=== PATIENT | female | born 1980 | race Caucasian/White ===

== ENCOUNTER 2016-09-14 15:29 | Emergency (ER) | payer OTHER ==
[2016-09-14 15:33] VITALS: BMI 23.3
[2016-09-14] MEDS ORDERED: METOCLOPRAMIDE HCL INJECTION 10 MG/2 ML VIAL IVPB ONE (16:16)
[2016-09-14] MEDS ORDERED: ACETAMINOPHEN 325 MG TABLET (FP) PO ONE (16:16)
[2016-09-14] MEDS ORDERED: SODIUM CHLORIDE 1,000 ML IV STA (16:17)
--- NOTE | 2016-09-14 16:23 | PDOC ---
History of Present Illness - General History Source: Patient Exam Limitations: No Limitations - History of Present Illness Initial Comments: 09/14/16 16:37 The patient is a 36 year old female who is currently 7 weeks , A1, with a significant past medical history of fibromyalgia and migraines, who presents to the emergency department with abdominal pain, headache and nosebleed. She states that the abdominal pain ranges from mild to moderate, without radiation or modifying factors. She notes that this pain has persisted for a month but has exacerbated today. She describes her headache as a pressure like sensation and reports that her headache ranges from mild to moderate, without radiation or modifying factors. She states that she has been experiencing the headache for 3 days. She notes that he nosebleed started yesterday and has had a total of 4 nosebleeds since. She denies vaginal bleeding or vaginal discharge. She denies taking any medication for the pain. The patient denies chest pain, shortness of breath, and dizziness. Denies fever , chills, nausea, vomit, diarrhea and constipation. Denies dysuria, frequency, urgency and hematuria. Allergies: None Past surgical history: None reported Social history: No alcohol, tobacco <Tarun Allison - Last Filed: 09/14/16 19:55> - General History Source: Patient Exam Limitations: No Limitations <Walt Gleason - Last Filed: 09/14/16 20:17> - General Chief Complaint: Pain Stated Complaint: 7 WKS , ABD PAIN, NOSE BLEED Time Seen by Provider: 09/14/16 16:09 Past History <Tarun Allison - Last Filed: 09/14/16 19:55> - Past Medical History Other medical history: FIBROMYALGIA - Reproductive History Is Patient Now?: Yes (#): 2 Para: 0 Spontaneous : 1 - Psycho/Social/Smoking Cessation Hx Anxiety: No Suicidal Ideation: No Smoking History: Never smoked Hx Alcohol Use: No Drug/Substance Use Hx: No Substance Use Type: None <Walt Gleason - Last Filed: 09/14/16 20:17> - Past Medical History Allergies/Adverse Reactions: Allergies Allergy/AdvReac Type Severity Reaction Status Date / Time No Known Allergies Allergy Verified 09/14/16 15:33 Home Medications: Ambulatory Orders Acetaminophen [Tylenol] 650 mg PO Q4H PRN #20 tablet 09/14/16 Vit Calc,Iron,Folic [ Vitamins] 1 each PO DAILY #30 tablet 08/30 Review of Systems - Review of Systems Able to Perform ROS?: Yes Comments:: 09/14/16 16:37 GENERAL/CONSTITUTIONAL: No fever or chills. No weakness. HEAD, EYES, EARS, NOSE AND THROAT: +Nosebleed. No change in vision. No ear pain or discharge. No sore throat. CARDIOVASCULAR: No chest pain or shortness of breath RESPIRATORY: No cough, wheezing, or hemoptysis. GASTROINTESTINAL: +Abdominal pain. No nausea, vomiting, diarrhea or constipation. GENITOURINARY: No dysuria, frequency, or change in urination. MUSCULOSKELETAL: No joint or muscle swelling or pain. No neck or back pain. SKIN: No rash NEUROLOGIC: +Headache. No vertigo, loss of consciousness, or change in strength/ sensation. ENDOCRINE: No increased thirst. No abnormal weight change HEMATOLOGIC/LYMPHATIC: No anemia, easy bleeding, or history of blood clots. ALLERGIC/IMMUNOLOGIC: No hives or skin allergy. <Tarun Allison - Last Filed: 09/14/16 19:55> *Physical Exam - Vital Signs Last Vital Signs Temp Pulse Resp BP Pulse Ox 98.1 F 66 20 131/74 100 09/14/16 15:31 09/14/16 15:31 09/14/16 15:31 09/14/16 15:31 09/14/16 15:31 - Physical Exam Comments: 09/14/16 16:37 GENERAL: Awake, alert, and fully oriented, in no acute distress HEAD: No signs of trauma, normocephalic, atraumatic EYES: PERRLA, EOMI, sclera anicteric, conjunctiva clear ENT: Auricles normal inspection, hearing grossly normal, nares patent, oropharynx clear without exudates. Moist mucosa NECK: Normal ROM, supple, no lymphadenopathy, JVD, or masses LUNGS: No distress, speaks full sentences, clear to auscultation bilaterally HEART: Regular rate and rhythm, normal S1 and S2, no murmurs, rubs or gallops, peripheral pulses normal and equal bilaterally. ABDOMEN: +Mild suprapubic tenderness. Soft, normoactive bowel sounds. No guarding, no rebound. No masses EXTREMITIES: Normal inspection, Normal range of motion, no edema. No clubbing or cyanosis. NEUROLOGICAL: Cranial nerves II through XII grossly intact. Normal speech, normal gait, no focal sensorimotor deficits SKIN: Warm, Dry, normal turgor, no rashes or lesions noted. <GladyskymberlyTarun Samreen - Last Filed: 09/14/16 19:55> - Vital Signs Last Vital Signs Temp Pulse Resp BP Pulse Ox 98.1 F 66 20 131/74 100 09/14/16 15:31 09/14/16 15:31 09/14/16 15:31 09/14/16 15:31 09/14/16 15:31 <Walt Gleason - Last Filed: 09/14/16 20:17> ED Treatment Course - LABORATORY CBC & Chemistry Diagram: 09/14/16 16:44 09/14/16 16:44 - RADIOLOGY Radiograph Interpretation: 09/14/16 19:55 Transvaginal ultrasound Reviewed by: Dr. Pedro Medina Impression: Single live intrauterine with estimated gestational age of 7 weeks. Cyst/corpus luteum cyst in the right ovary measuring 2 x 1.8 cm. <Tarun Allison - Last Filed: 09/14/16 19:55> - LABORATORY CBC & Chemistry Diagram: 09/14/16 16:44 09/14/16 16:44 <Walt Gleason - Last Filed: 09/14/16 20:17> Medical Decision Making - Medical Decision Making 09/14/16 16:21 A portion of this note was written by my scribe, under my supervision. Vital Signs Temp Pulse Resp BP Pulse Ox 98.1 F 66 20 131/74 100 09/14/16 15:31 09/14/16 15:31 09/14/16 15:31 09/14/16 15:31 09/14/16 15:31 36 year old female c/ hx of migraines, ~7 wks p/w daily, intermittent lower abdominal cramping x 1 month. States that it is persistent and not worse. Denies any history of vaginal bleeding. Denies nausea, vomiting. Unsure what exacerbates or improves symptoms. Never had an ultrasound or an OB visit for this. Does not she have a history of migraines. Developed intermittent mild to moderate generalized tension-like headache without any neurological deficits. Did not take any medications. Stated yesterday, with the weather changes with the snow and warm weather today, had developed three separate episodes of nose bleed which is now resolved. Will not need to intervene with the nose bleed. I suspect that the patient has developed a tension vs. migraine headache. I have low suspicion for other dangerous pathology at this time. No need for CT head. Treat with IV reglan and tylenol and IVF. Given lower abdominal pain, will obtain a transvaginal ultrasound, beta HCT, UA and reassess. 09/14/16 20:05 Single live intrauterine with estimated gestational age of 7 weeks. Cyst/corpus luteum cyst in right ovary. O positive blood type. CBC, BMP 09/14/16 16:44 09/14/16 16:44 CMP Sodium 137 mmol/L (136-145) 09/14/16 16:44 Potassium 3.7 mmol/L (3.5-5.1) 09/14/16 16:44 Chloride 101 mmol/L (98-107) 09/14/16 16:44 Carbon Dioxide 22 mmol/L (21-32) 09/14/16 16:44 Anion Gap 14 (8-16) 09/14/16 16:44 BUN 10 mg/dL (7-18) 09/14/16 16:44 Creatinine 0.5 mg/dL (0.55-1.02) L 09/14/16 16:44 Creat Clearance w eGFR > 60 (>60) 09/14/16 16:44 Random Glucose 83 mg/dL (74-106) 09/14/16 16:44 Calcium 8.8 mg/dL (8.5-10.1) 09/14/16 16:44 Total Bilirubin 0.4 mg/dL (0.2-1.0) 09/14/16 16:44 AST 12 U/L (15-37) L 09/14/16 16:44 ALT 17 U/L (12-78) 09/14/16 16:44 Alkaline Phosphatase 81 U/L (45-117) 09/14/16 16:44 Total Protein 7.3 g/dl (6.4-8.2) 09/14/16 16:44 Albumin 3.6 g/dl (3.4-5.0) 09/14/16 16:44 Beta HCG, Quant 41294.9 mIU/ml 09/14/16 16:44 Urine Test Results Urine Color Colorless 09/14/16 16:44 Urine Appearance Clear 09/14/16 16:44 Urine pH 6.0 (5.0-8.0) 09/14/16 16:44 Ur Specific [place] 1.003 (1.001-1.035) 09/14/16 16:44 Urine Protein Negative (NEGATIVE) 09/14/16 16:44 Urine Glucose (UA) Negative (NEGATIVE) 09/14/16 16:44 Urine Ketones Negative (NEGATIVE) 09/14/16 16:44 Urine Blood Negative (NEGATIVE) 09/14/16 16:44 Urine Nitrite Negative (NEGATIVE) 09/14/16 16:44 Urine Bilirubin Negative (NEGATIVE) 09/14/16 16:44 Ur Leukocyte Esterase Negative (NEGATIVE) 09/14/16 16:44 Labs reviewed. Patient reports feeling much better and reassured. States tylenol and reglan improved her symptoms drastically. Will give a prescription for vitamins and tylenol. Return precautions given including worsening abdominal pain or vaginal bleeding. The nose bleed is likely secondary to the changing weather and humidities. No bleeding witnessed here. I discussed the physical exam findings, ancillary test results and final diagnoses with the patient. I answered all of the patient's questions. The patient was satisfied with the care received and felt comfortable with the discharge plan and treatment plan. The patient will call their primary care physician within 24 hours to arrange follow-up and will return to the Emergency Department with any new, persistant or worsening symptoms. <Walt Gleason - Last Filed: 09/14/16 20:17> *DC/Admit/Observation/Transfer - Attestations Scribe Attestion: 09/14/16 16:37 Documentation prepared by Tarun Allison, acting as medical recruiter for Walt Gleason MD. <Tarun Allison - Last Filed: 09/14/16 19:55> - Discharge Dispostion Admit: No <Walt Gleason - Last Filed: 09/14/16 20:17> Diagnosis at time of Disposition: Abdominal pain during Qualifiers: Trimester: first trimester Qualified Code(s): O26.891 - Other specified related conditions, first trimester - Discharge Dispostion Disposition: HOME Condition at time of disposition: Improved - Prescriptions Prescriptions: Vit Calc,Iron,Folic [ Vitamins] 1 each PO DAILY #30 tablet Acetaminophen [Tylenol] 650 mg PO Q4H PRN #20 tablet PRN Reason: Pain - Referrals Referrals: Ambrose Ellis MD [Staff Physician] - Victor Hugo Smith MD [Staff Physician] - - Patient Instructions Printed Discharge Instructions: DI for Abdominal Pain -- Early Additional Instructions: Your ultrasound is reassuring. Please follow up with an scroll shear operator doctor. Take 650 mg tylenol every 4 hours as needed for pain. Take a vitamin daily. If you have uncontrollable pain, or vaginal bleeding, please return to the ER.
[2016-09-14] MEDS ORDERED: METOCLOPRAMIDE HCL INJECTION 10 MG/2 ML VIAL ONE (16:25)
[2016-09-14] MEDS ORDERED: ACETAMINOPHEN 325 MG TABLET (FP) ONE (16:25)
[2016-09-14 16:56] LABS: BASOPHIL 0.4 % (0-2.0); EOSINOPHIL 1.4 % (0-4.5); MCH 28.5 pg (25.7-33.7); MCHC 33.8 g/dl (32.0-36.0); MEAN CELL VOLUME 84.3 fl (80-96); MEAN PLT VOLUME 7.5 fl (7.5-11.1); NEUTROPHILS 74.8 % (42.8-82.8); PLATELET COUNT 253 K/MM3 (134-434); RDW 15.8 % (11.6-15.6); URINE APPEARANCE CLEAR; URINE BILIRUBIN NEGATIVE (NEGATIVE); URINE BLOOD NEGATIVE (NEGATIVE); URINE COLOR COLORLESS; URINE GLUCOSE (UA) NEGATIVE (NEGATIVE); URINE KETONE NEGATIVE (NEGATIVE); URINE LEUK ESTERASE NEGATIVE (NEGATIVE); URINE NITRITE NEGATIVE (NEGATIVE); URINE PROTEIN NEGATIVE (NEGATIVE); URINE UROBILINOGEN NEGATIVE E.U./dl (0.2-1.0); WHITE BLOOD COUNT 9.9 K/mm3 (4.0-10.0)
[2016-09-14 17:14] LABS: INR 1.14 (0.82-1.09); PROTHROMBIN TIME (PATIENT) 12.6 SEC (9.98-11.88)
[2016-09-14 17:16] LABS: ACTIVATED PTT 31.6 SECONDS (26.9-34.4)
[2016-09-14 17:54] LABS: ALBUMIN 3.6 g/dl (3.4-5.0); ANION GAP 14 (8-16); CALCIUM 8.8 mg/dL (8.5-10.1); CO2 22 mmol/L (21-32); CREATININE 0.5 mg/dL (0.55-1.02); GLUCOSE,RANDOM 83 mg/dL (74-106); SGOT/AST 12 U/L (15-37); SGPT/ALT 17 U/L (12-78)
[2016-09-14 18:10] LABS: ALK PHOS 81 U/L (45-117); BILIRUBIN,TOTAL 0.4 mg/dL (0.2-1.0); TOT PROT 7.3 g/dl (6.4-8.2)
[2016-09-14 20:06] VITALS: BP 107/59; PULSE 72; TEMP 98.6
== END 2016-09-14 20:26 | disposition home or self-care (01) ==
LOC: JER 15:29
PROC: 3E033GC Introduction of Other Therapeutic Substance into Peripheral Vein, Percutaneous Approach (ICD-10-PCS; principal; 2016-09-14)
PROC: 3E0337Z Introduction of Electrolytic and Water Balance Substance into Peripheral Vein, Percutaneous Approach (ICD-10-PCS; 2016-09-14)
DX: O26.891 Other specified pregnancy related conditions, first trimester (principal); M79.7 Fibromyalgia
CPT/HCPCS: 36415; 76817-TC; 80053; 81003; 84702; 85025; 85610; 85730; 86850; 86900; 86901; 87086; 96361; 96374; 99284-25

== ENCOUNTER 2017-03-06 12:11 | Emergency (ER) | payer OTHER ==
[2017-03-06 12:36] VITALS: BMI 26.9
[2017-03-06 13:50] VITALS: BP 115/77; PULSE 72; TEMP 98
[2017-03-06 14:23] LABS: URINE APPEARANCE CLEAR; URINE BILIRUBIN NEGATIVE (NEGATIVE); URINE BLOOD NEGATIVE (NEGATIVE); URINE COLOR LTYELLOW; URINE GLUCOSE (UA) NEGATIVE (NEGATIVE); URINE KETONE NEGATIVE (NEGATIVE); URINE LEUK ESTERASE TRACE (NEGATIVE); URINE NITRITE NEGATIVE (NEGATIVE); URINE PROTEIN NEGATIVE (NEGATIVE); URINE UROBILINOGEN NEGATIVE mg/dL (0.2-1.0)
[2017-03-06 14:32] LABS: URINE RBC <1 /hpf (0-3); URINE WBC 4 /hpf (3-5)
== END 2017-03-06 14:50 | disposition home or self-care (01) ==
LOC: SUPCPDRO 12:11 → JER 12:11
DX: O26.893 Other specified pregnancy related conditions, third trimester (principal); R10.30 Lower abdominal pain, unspecified; Z3A.32 32 weeks gestation of pregnancy
CPT/HCPCS: 81003; 81015; 99281-25

== ENCOUNTER 2017-03-07 11:20 | Inpatient (IN) | payer OTHER ==
[~2017-03-07 11:20] MED LIST: ELECTROLYTE-148 SOLN 1,000 ML IV SCH
[2017-03-07] MEDS ORDERED: AMPICILLIN - 2 GM in SODIUM CHLORIDE 100 ML IVPB ONE (12:00)
[2017-03-07] MEDS ORDERED: BETAMET ACET/BETAMET NA PH 30 MG/5 ML VIAL IM ONE (12:00)
[2017-03-07 12:06] LABS: BASOPHIL 0.3 % (0-2.0); EOSINOPHIL 0.5 % (0-4.5); MCH 29.8 pg (25.7-33.7); MCHC 34.2 g/dl (32.0-36.0); NEUTROPHILS 84.8 % (42.8-82.8); PLATELET COUNT 211 K/MM3 (134-434); RDW 13.3 % (11.6-15.6); WHITE BLOOD COUNT 13.5 K/mm3 (4.0-10.0)
[2017-03-07 12:26] LABS: ANION GAP 7 (8-16); CALCIUM 9.2 mg/dL (8.5-10.1); CO2 25 mmol/L (21-32); CREATININE 0.5 mg/dL (0.55-1.02); GLUCOSE,RANDOM 85 mg/dL (74-106)
[2017-03-07 12:28] LABS: INR 1.03 (0.82-1.09); PROTHROMBIN TIME (PATIENT) 11.3 SEC (9.98-11.88)
[2017-03-07 12:31] LABS: ACTIVATED PTT 29.7 SECONDS (26.9-34.4)
[2017-03-07 12:49] VITALS: BP 121/67; PULSE 79; TEMP 98.5; BMI 27.3
--- NOTE | 2017-03-07 12:56 | HP ---
Past Medical History - Primary Care Physician PCP:: Victor Hugo Smith - Admission Chief Complaint: 32 weeks, ,prom, ama History of Present Illness: 36 yo f g [id number] edc by sono 05/03/17 , edc by date 04/28/17 32.4 weeks, c/o leaking clear fluid since 3 am today. occasional cramps, no bleeding, no fever. fhr cat 1, occasional mild contraction, speculum exam ,gross fluid leakage with positve nitrazine History Source: Patient Limitations to Obtaining History: Language Barrier - Past Medical History ...: 2 ...Para: 0 ...Term: 0 ...: 0 ...Spon : 1 ...Induced : 0 ...Multiple Gestation: 0 ...LMP: 08/01/16 ... Weeks Gestation by Dates: 32.4 ...EDC by Dates: 04/28/17 ...EDC by Sono: 05/03/17 Additional OB History: one spont ab - Past Surgical History Hx Myomectomy: No Hx Transabdominal Cerclage: No - Smoking History Smoking history: Never smoked Have you smoked in the past 12 months: No - Alcohol/Substance Use Hx Alcohol Use: No - Social History Usual Living Arrangement: Yes: With Spouse History of Recent Travel: No Home Medications - Allergies Allergies/Adverse Reactions: Allergies Allergy/AdvReac Type Severity Reaction Status Date / Time No Known Allergies Allergy Verified 03/06/17 12:32 - Home Medications Home Medications: Ambulatory Orders Vit Calc,Iron,Folic [ Vitamins] 1 each PO DAILY #30 tablet 08/30 Review of Systems - Review of Systems Constitutional: reports: No Symptoms Eyes: reports: No Symptoms HENT: reports: No Symptoms Neck: reports: No Symptoms Cardiovascular: reports: No Symptoms Respiratory: reports: No Symptoms Gastrointestinal: reports: No Symptoms Genitourinary: reports: No Symptoms Breasts: reports: No Symptoms Reported Integumentary: reports: No Symptoms Neurological: reports: No Symptoms Endocrine: reports: No Symptoms Hematology/Lymphatic: reports: No Symptoms Psychiatric: reports: No Symptoms Physical Exam - Maternity Vital Signs: Vital Signs Temperature 98.5 F 03/07/17 11:20 Pulse Rate 79 03/07/17 11:20 Respiratory Rate 20 03/07/17 11:20 Blood Pressure 121/67 03/07/17 11:20 O2 Sat by Pulse Oximetry (%) Constitutional: Yes: Well Nourished, No Distress, Calm Eyes: Yes: WNL, Conjunctiva Clear, EOM Intact HENT: Yes: WNL, Atraumatic, Normocephalic Neck: Yes: WNL, Supple, Trachea Midline Cardiovascular: Yes: WNL, Regular Rate and Rhythm Breast(s): Yes: WNL - Abdominal Exam/OB Fundal Height: 32 Number of Fetuses: Single Presentation: Vertex Contractions: Yes Regularity: Irregular Intensity: Mild Monitor Mode: External Heart Rate Location: [facility] Category: I Accelerations: Uniform Decelerations: None - Vaginal Exam/OB Vaginal Bleediing: No Speculum Exam: Yes Dilatation (cm): closed Amniotic Membrane Status: Ruptured Nitrazine Test: Positive Amniotic Fluid: Yes: Clear Presentation: Vertex/Position - Physical Exam Musculoskeletal: Yes: WNL Extremities: Yes: WNL Edema: LUE: Trace, RUE: Trace, LLE: Trace, RLE: Trace Deep Tendon Reflex Grade: Normal +2 ...Motor Strength: WNL Psychiatric: Yes: WNL - Labs Lab Results: CBC, BMP 03/07/17 11:56 03/07/17 11:56 Hemorrhage Risk Assessment - Risk Factors Risk Score: 0 Risk Level: Low Risk Problem List - Problems (1) with 31 to 32 completed weeks gestation Code(s): HPS9273 - (2) Premature rupture of membranes Code(s): O42.90 - SHONDA ROM, 7TH0 BETW RUPT & ONST LABR, UNSP WEEKS OF GEST Qualifiers: PROM gestational age: -third trimester (3) Advanced maternal age (AMA) in Code(s): HQK9410 - Assessment/Plan advised iv ampicillin, celestone , advised to be transfer to [facility] for prematurity
--- NOTE | 2017-03-07 19:32 | DS ---
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 Vital Signs: Vital Signs Temperature 98.5 F 03/07/17 11:20 Pulse Rate 79 03/07/17 11:20 Respiratory Rate 20 03/07/17 11:20 Blood Pressure 121/67 03/07/17 11:20 O2 Sat by Pulse Oximetry (%) Constitutional: Yes: Well Nourished, No Distress, Calm Eyes: Yes: WNL, Conjunctiva Clear, EOM Intact HENT: Yes: WNL, Atraumatic, Normocephalic Neck: Yes: WNL, Supple, Trachea Midline Cardiovascular: Yes: WNL, Regular Rate and Rhythm Respiratory: Yes: WNL, Regular, CTA Bilaterally Gastrointestinal: Yes: WNL ...Rectal Exam: Yes: WNL Renal/: Yes: WNL Pelvis: Yes: WNL Internal Exam Deferred: Yes Breast(s): Yes: WNL Musculoskeletal: Yes: WNL Extremities: Yes: WNL Integumentary: Yes: WNL Neurological: Yes: WNL, Alert, Oriented ...Motor Strength: WNL Psychiatric: Yes: WNL, Alert, Oriented Labs: CBC, BMP 03/07/17 11:56 03/07/17 11:56 Delivery - Delivery Vaginal Delivery: No Problems Maneuvers: no delivery, tranferred to [facility] Delivery, Single - Feeding Plan Initial Plan: Elected not to breastfeed exclusively throughout hospitalization Discharge Summary Reason For Visit: LABOR Hospital Course: 32 weeks, prom, transferred to [facility] - Instructions Diet, Activity, Other Instructions: PATIENT 31.6WKS GESTATION WITH PREMATURE RUPTURED MEMBRANES TRANSFERRED TO [facility] IN STABLE/UNDELIVERED CONDITION. Disposition: TRANSFER ACUTE CARE/OTHER HOSP - Home Medications Comprehensive Discharge Medication List: Ambulatory Orders Vit Calc,Iron,Folic [ Vitamins] 1 each PO DAILY #30 tablet 08/30 Ferrous Sulfate 325 mg PO DAILY 03/07/17
== END 2017-03-07 15:15 | disposition short-term general hospital (02) | DRG 566 ==
LOC: JLDR 11:20
PROVIDERS: ADMIT Obstetrics & Gynecology; ATTEND Obstetrics & Gynecology
DX: O42.913 Preterm premature rupture of membranes, unspecified as to length of time between rupture and onset of labor, third trimester (principal); O09.513 Supervision of elderly primigravida, third trimester; Z3A.32 32 weeks gestation of pregnancy
CPT/HCPCS: 36415; 80048; 85025; 85610; 85730; 86593; 86850; 86900; 86901

== ENCOUNTER 2017-10-16 19:16 | Emergency (ER) | payer OTHER ==
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
[2017-10-16 19:34] VITALS: BP 128/72; PULSE 70; TEMP 98.4; BMI 25.7
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
== END 2017-10-16 21:23 | disposition home or self-care (01) ==
LOC: JERFT 19:16
DX: O26.91 Pregnancy related conditions, unspecified, first trimester (principal); Z3A.08 8 weeks gestation of pregnancy; S09.90XA Unspecified injury of head, initial encounter; Y04.0XXA Assault by unarmed brawl or fight, initial encounter
CPT/HCPCS: 84703; 99281-25